=== PATIENT | female | born 1995 | race Two or more races ===

== ENCOUNTER 2022-05-26 14:12 | Emergency (ER) | payer OTHER ==
[~2022-05-26] VITALS: Ht 157.5 cm; Wt 94.8 kg
--- NOTE | 2022-05-26 14:22 | NUR ---
[id number] & [employer] FROM [facility] C/O HEAD INJURY S/P FALL FROM BED PER PT UNWITNESSED. - HEMATOMA. PT AAOX4, VSS. RR EVEN & UNLABORED. AWAITING EVAL BY ERM[employer]y. WILL CONT TO MONITOR. [employer] OFFICERS AT BS.
[2022-05-26] MEDS ORDERED: ONDANSETRON 4 MG TAB.RAPDIS ONE (15:27)
[2022-05-26] MEDS ORDERED: ACETAMINOPHEN ES 500 MG TABLET ONE (15:27)
[2022-05-26] MEDS ORDERED: ACETAMINOPHEN ES 500 MG TABLET PO ONE (15:30)
[2022-05-26] MEDS ORDERED: ONDANSETRON 4 MG TAB.RAPDIS SL ONE (15:30)
--- NOTE | 2022-05-26 15:33 | NUR ---
Pt refusing meds at this time appears comfortable. Officer Janie Cunningham65 Remains at bedside
--- NOTE | 2022-05-26 15:35 | NUR ---
Cheryl huston in [facility] - 05/26/22 at 1537 by HEATHER PT JENNA LUNA AWARE.
--- NOTE | 2022-05-26 17:30 | NUR ---
PT TO CT VIA [facility].
--- NOTE | 2022-05-26 18:06 | NUR ---
Patient discharged in custody of [employer] officers Ambrosio and Rosanne of [facility] in stable condition. Written and verbal after care instructions given. Patient and police officers verbalizes understanding of instruction.
[2022-05-26 18:08] VITALS: BP 139/80
== END 2022-05-26 18:09 ==
LOC: ER 14:31
DX: S09.90XA Unspecified injury of head, initial encounter (principal); W06.XXXA Fall from bed, initial encounter; Y93.89 Activity, other specified; Y92.89 Other specified places as the place of occurrence of the external cause; Y99.8 Other external cause status
CPT/HCPCS: 70450-TC; 72125-TC; Q0162